=== PATIENT | male | born 1930 | race Two or more races ===

== ENCOUNTER 2017-06-10 09:55 | Inpatient (IN) | payer MEDICARE, OTHER ==
[~2017-06-10] VITALS: Ht 182.9 cm; Wt 79.4 kg
[~2017-06-10 09:55] MED LIST: ARICEPT10 MG ORAL; ASPIR-LOW81 MG ORAL; ATORVASTATIN CA20 MG ORAL; CEPHALEXIN500 MG ORAL; CILOSTAZOL100 MG PO; DEPAKOTE ER250 MG ORAL; ISOSORBIDE MONO20 MG PO; METOPROLOL SUCC25 MG ORAL; MIRTAZAPINE15 M3 ORAL; MULTIVITAMINS1 EAC2 ORAL; NAMENDA5 MG ORAL; OMEPRAZOLE20 M2 ORAL; POTASSIUM99 M3 PO; TAMSULOSIN HCL0.4 MG ORAL
[2017-06-10 10:06] VITALS: BP 117/65
[2017-06-10] MEDS ORDERED: POTASSIUM CHLO10 ME2 PO (10:12)
[2017-06-10] MEDS ORDERED: ISOSORBIDE MONO30 M1 PO (10:12)
[2017-06-10] MEDS ORDERED: NEXIUM20 MG ORAL (10:21)
[2017-06-10] MEDS ORDERED: OYSTER SHELL C1 EA15 PO (10:21)
--- NOTE | 2017-06-10 10:54 | Diagnostic Imaging Report ---
Indication: Shortness of breath Technique: One view of the chest Comparison: 02/29/2016 Findings: The lungs and pleural spaces are clear. Heart size is normal. Aorta tortuous calcified and ectatic. Impression: No acute process
--- NOTE | 2017-06-10 10:54 | Emergency Room Report ---
History of Present Illness General Chief Complaint: Generalized Weakness Source: Medical Record, EMS Present Illness HPI 87-year-old male presents ED for evaluation. EMS states that patient has been more weak than usual and appears more confused than usual although patient does have a history of dementia. Patient is normally walking but is now bedbound. Patient is afebrile. In her any additional history at this time. No signs of distress. No other aggravating relieving factors. No other associated symptoms Allergies: Coded Allergies: No Known Allergies (Unverified , 02/29/16) Patient History Past Medical History: dementia Past Surgical History: none Pertinent Family History: none Social History: Denies: smoking, alcohol use, drug use Immunizations: UTD Reviewed Nursing Documentation: PMH: Agreed, PSxH: Agreed Nursing Documentation-PMH Hx Cardiac Problems: Yes - peripheral angiopathy, hypercholesterolemia Hx Cancer: No - RA Hx Gastrointestinal Problems: No Hx Neurological Problems: Yes - DEMENTIA Hx Alzheimer's Disease: Yes Review of Systems All Other Systems: negative except mentioned in HPI Physical Exam Vital Signs Date Time Temp Pulse Resp B/P (MAP) Pulse Ox O2 Delivery O2 Flow Rate FiO2 06/10/17 09:39 72 16 102/66 100 Room Air 06/10/17 10:06 97.5 Sp02 EP Interpretation: reviewed, normal General Appearance: no apparent distress, GCS 15, non-toxic, lethargic Head: normocephalic Eyes: bilateral eye normal inspection, bilateral eye PERRL ENT: normal ENT inspection Neck: normal inspection Respiratory: chest non-tender, lungs clear, normal breath sounds, speaking full sentences Cardiovascular #1: regular rate, rhythm, no edema Gastrointestinal: normal bowel sounds, non tender, soft, non-distended, no guarding, no rebound Rectal: deferred Genitourinary: no CVA tenderness Musculoskeletal: back normal, normal range of motion, non-tender Neurologic: other - dementia Psychiatric: other - dementia Skin: normal inspection Lymphatic: normal inspection Medical Decision Making Diagnostic Impression: Primary Impression: Episode of generalized weakness Additional Impressions: UTI (urinary tract infection) Qualified Codes: N39.0 - Urinary tract infection, site not specified Sepsis Qualified Codes: A41.9 - Sepsis, unspecified organism ER Course Hospital Course 87-year-old male presenting to ED with generalized weakness, more confused than usual Differential diagnoses include: Pneumonia, UTI, sepsis, dehydration, RI/ unstable angina, CVA/TIA Clinical course Patient placed on stretcher. On school lunch monitor with stable vitals are ED course. After initial history and physical, I ordered labs, IV fluids, EKG, chest x-ray, blood cultures, UA. Labs - noted leukocytosis, hb/hct stable, electrolytes ok, lactate > 3, UA + bacteria EKG - NSR, no acute sichemic changes, some PVCS noted interpreted by me CXR - no acute process CT Head - no acute bleed Abx given. given 30cc/kg fluid bolus. Case discussed with Dr Kenny and they agreed to admit patient to their service for further care and support I feel this is a highly complex case requiring extensive working including EKG/ Rhythm strip, Xray/CT/US, Blood/urine lab work, repeat exams while in ED, and administration of strong opiates/narcotics for pain control, admission to hospital or close patient follow up. Diagnosis - sepsis, UTI, generalized weakness Patient admitted to floor in serious condition Labs Test 06/10/17 10:22 White Blood Count 13.3 K/UL (4.8-10.8) Red Blood Count 5.13 M/UL (4.70-6.10) Hemoglobin 15.3 G/DL (14.2-18.0) Hematocrit 46.7 % (42.0-52.0) Mean Corpuscular Volume 91 FL (80-99) Mean Corpuscular Hemoglobin 29.9 PG (27.0-31.0) Mean Corpuscular Hemoglobin Concent 32.8 G/DL (32.0-36.0) Red Cell Distribution Width 12.5 % (11.6-14.8) Platelet Count 294 K/UL (150-450) Mean Platelet Volume 8.3 FL (6.5-10.1) Neutrophils (%) (Auto) 77.9 % (45.0-75.0) Lymphocytes (%) (Auto) 16.2 % (20.0-45.0) Monocytes (%) (Auto) 4.3 % (1.0-10.0) Eosinophils (%) (Auto) 0.5 % (0.0-3.0) Basophils (%) (Auto) 1.1 % (0.0-2.0) Urine Color Yellow Urine Appearance Slightly cloudy Urine pH 7 (4.5-8.0) Urine Specific [place] 1.010 (1.005-1.035) Urine Protein 2+ (NEGATIVE) Urine Glucose (UA) Negative (NEGATIVE) Urine Ketones Negative (NEGATIVE) Urine Occult Blood 2+ (NEGATIVE) Urine Nitrite Positive (NEGATIVE) Urine Bilirubin Negative (NEGATIVE) Urine Urobilinogen 4 MG/DL (0.0-1.0) Urine Leukocyte Esterase 3+ (NEGATIVE) Urine RBC 2-4 /HPF (0 - 0) Urine WBC 10-15 /HPF (0 - 0) Urine Squamous Epithelial Cells Occasional /LPF Urine Bacteria Moderate /HPF (NONE) Urine Mucus Moderate /LPF (NONE/OCC) Sodium Level 142 MMOL/L (136-145) Potassium Level 4.4 MMOL/L (3.5-5.1) Chloride Level 109 MMOL/L (98-107) Carbon Dioxide Level 20 MMOL/L (21-32) Anion Gap 13 mmol/L (5-15) Blood Urea Nitrogen 21 mg/dL (7-18) Creatinine 1.2 MG/DL (0.55-1.30) Estimat Glomerular Filtration Rate mL/min (>60) Glucose Level 173 MG/DL (74-106) Lactic Acid Level 3.20 mmol/L (0.66-2.22) Calcium Level 9.8 MG/DL (8.5-10.1) Total Bilirubin 0.5 MG/DL (0.2-1.0) Aspartate Amino Transf (AST/SGOT) 21 U/L (15-37) Alanine Aminotransferase (ALT/SGPT) 13 U/L (12-78) Alkaline Phosphatase 109 U/L (46-116) Total Creatine Kinase 347 U/L (26-308) Creatine Kinase MB 3.3 NG/ML (0.0-3.6) Creatine Kinase MB Relative Index 0.9 Troponin I 0.008 ng/mL (0.000-0.056) Pro-B-Type Natriuretic Peptide 918 pg/mL (0-125) Total Protein 7.5 G/DL (6.4-8.2) Albumin 3.0 G/DL (3.4-5.0) Globulin 4.5 g/dL Albumin/Globulin Ratio 0.7 (1.0-2.7) EKG Diagnostic Results Rate: normal Rhythm: NSR ST Segments: no acute changes ASA given to the pt in ED: No Rhythm Strip Diag. Results EP Interpretation: yes Rhythm: NSR, no ectopy, other - PVCs Chest X-Ray Diagnostic Results Chest X-Ray Diagnostic Results : Chest X-Ray Ordered: Yes # of Views/Limited/Complete: 1 View Indication: Other - ams EP Interpretation: Yes Interpretation: no consolidation, no effusion, no pneumothorax, no acute cardiopulmonary disease Impression: No acute disease Electronically Signed by: Electronically signed by Justin Elizondo MD CT/MRI/US Diagnostic Results CT/MRI/US Diagnostic Results : Imaging Test Ordered: CT Head Impression no acute process identified Last Vital Signs Date Time Temp Pulse Resp B/P (MAP) Pulse Ox O2 Delivery O2 Flow Rate FiO2 06/10/17 10:06 97.5 94 16 117/65 100 Room Air Status: improved Disposition: ADMITTED INPATIENT Condition: Serious JUSTIN ELIZONDO M.D. Jun 10, 2017 10:54
[2017-06-10 11:09] LABS: APPEARANCE,URINE SLIGHTLY CLOUDY; KETONES,URINE NEGATIVE (NEGATIVE); LEUKOCYTE ESTERASE ,URINE 3+ (NEGATIVE); NITRITE,URINE POSITIVE (NEGATIVE); PH,URINE 7 (4.5-8.0); PROTEIN,URINE 2+ (NEGATIVE); UROBILINOGEN,URINE 4 MG/DL (0.0-1.0)
[2017-06-10 11:10] LABS: BASOPHILS % (AUTO) 1.1 % (0.0-2.0); EOSINOPHILS % (AUTO) 0.5 % (0.0-3.0); LYMPHOCYTES % (AUTO) 16.2 % (20.0-45.0); MEAN CORPUSCULAR HEMOGLOBIN 29.9 PG (27.0-31.0); MEAN CORPUSCULAR HGB CONC 32.8 G/DL (32.0-36.0); MEAN CORPUSCULAR VOLUME 91 FL (80-99); MEAN PLATELET VOLUME 8.3 FL (6.5-10.1); MONOCYTES % (AUTO) 4.3 % (1.0-10.0); NEUTROPHILS % (AUTO) 77.9 % (45.0-75.0); PLATELET COUNT 294 K/UL (150-450); RED BLOOD COUNT 5.13 M/UL (4.70-6.10); RED CELL DISTRIBUTION WIDTH 12.5 % (11.6-14.8); WHITE BLOOD COUNT 13.3 K/UL (4.8-10.8)
[2017-06-10 11:34] LABS: REFLEX LACTIC ACID YES OR NO YES
[2017-06-10 11:37] LABS: ALANINE AMINOTRANSFERASE 13 U/L (12-78); ALBUMIN/GLOBULIN RATIO 0.7 (1.0-2.7); ANION GAP 13 mmol/L (5-15); ASPARTATE AMINO TRANSFERASE 21 U/L (15-37); CALCIUM 9.8 MG/DL (8.5-10.1); CARBON DIOXIDE 20 MMOL/L (21-32); CHLORIDE 109 MMOL/L (98-107); CKMB 3.3 NG/ML (0.0-3.6); CREATININE 1.2 MG/DL (0.55-1.30); POTASSIUM 4.4 MMOL/L (3.5-5.1); SODIUM 142 MMOL/L (136-145); TOTAL PROTEIN 7.5 G/DL (6.4-8.2)
[2017-06-10 11:39] LABS: BACTERIA,URINE MODERATE /HPF; SQUAMOUS EPITHELIAL CELL,UR OCCASIONAL /LPF (NONE/OCC)
[2017-06-10 11:40] LABS: MUCUS,URINE MODERATE /LPF (NONE/OCC)
[2017-06-10] MEDS ORDERED: Cefepime HCl 1 GM in D5W 55 ML IVPB ONE (11:45)
--- NOTE | 2017-06-10 11:51 | Diagnostic Imaging Report ---
Indications: Altered mental status Technique: Spiral acquisitions obtained through the brain. Angled axial and coronal 5 x 5 mm slices were reconstructed. Total dose length product 1350 mGycm. CTDI vol(s) 70 mGy. Dose reduction achieved using automated exposure control Comparison: None Findings: A large dense calcification is seen in the left basal ganglia, measures 8 mm diameter. 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 There is age-related enlargement of ventricles and extra-axial CSF spaces. There is periventricular deep white matter chronic ischemic change. 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 No acute intracranial hemorrhage or edema. No mass effect nor midline shift. The calvarium is intact. The mastoids are clear. The sinuses are clear. The orbits are unremarkable. Impression: Negative for acute intracranial bleed or mass effect Chronic and age-related changes, as described Large calcification in the left basal ganglia, nonspecific but most likely postinflammatory The CT scanner at [facility] is accredited by the [employer] and the scans are performed using protocols designed to limit radiation exposure to as low as reasonably achievable to attain images of sufficient resolution adequate for diagnostic evaluation.
[2017-06-10 11:59] VITALS: BP 113/80
[2017-06-10 12:29] VITALS: BP 112/71
[2017-06-10] MEDS ORDERED: Cefepime 1gm vial ONE (12:32)
[2017-06-10] MEDS ORDERED: Milk of Magnesia 30ml Ud ORAL PRN (14:30)
[2017-06-10 16:00] VITALS: BP 142/72
[2017-06-10] MEDS: Calcium Carbonate 500mg w/Vit D 200iu tab ORAL SCH (18:36)
[2017-06-10] MEDS: Memantine 5 MG TAB ORAL SCH (18:36)
[2017-06-10] MEDS: Tamsulosin 0.4mg cap ORAL SCH (18:36)
[2017-06-10 20:45] VITALS: BP 129/87
[2017-06-10] MEDS: Depakote ER 250mg tab ORAL SCH (20:46)
[2017-06-10] MEDS: Heparin 5000 units/ml inj SUBQ SCH (20:46)
[2017-06-10] MEDS: Atorvastatin 20mg tab ORAL SCH (20:47)
[2017-06-10] MEDS: Docusate 100mg cap ORAL SCH (20:47)
--- NOTE | 2017-06-10 21:00 | History and Physical Report ---
DATE OF ADMISSION: 06/10/2017 CHIEF COMPLAINT/REASON FOR HOSPITALIZATION: The patient is admitted for weakness, change in mental status, pyuria, and presumed UTI. HISTORY OF PRESENT ILLNESS: The patient is an 87-year-old man, resident of assisted living facility. Today, the staff noticed that he was having generalized weakness, not getting out of bed, and not acting in his usual manner. There were some concerns that he may be weaker on the left side than the right. In view of the above, he was sent to the emergency room. Laboratories are consistent with leukocytosis and pyuria and the CT brain scan has showed some presumed chronic changes, but negative for acute intracranial bleed or mass effect. There are old lacunar infarcts in the left basal ganglion. There is a large calcification in the left basal ganglia, nonspecific, but most likely post inflammatory. The patient has had no head trauma. He usually sits up in a wheelchair and generally eats fairly well and takes his medication. 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 There is a history of coronary artery disease and peripheral vascular disease, predating my taking over his care. He also has a history of BPH. PAST MEDICAL HISTORY: The patient is unable. MEDICATIONS: Tamsulosin 0.4 mg daily, Aricept 10 mg daily, Namenda 5 mg b.i.d., Os-Jean plus D b.i.d., aspirin 81 mg daily, atorvastatin 20 mg daily, mirtazapine 15 mg daily, Nexium 20 mg daily, Depakote EC 250 mg at bedtime, Pletal one tablet daily 100 mg, potassium 10 mEq two tablets b.i.d., isosorbide 30 mg daily, and metoprolol-XL 25 mg daily. ALLERGIES: None known. REVIEW OF SYSTEMS: The patient is unable. SOCIAL HISTORY: He lives in assisted living facility and I have spoken to his family, who feel that he should have a Full Code. Family phone number, and also [phone]. PHYSICAL EXAMINATION: GENERAL: The patient is lying in bed, in no acute distress. He is alert, trying to pull up the covers, and does not really want to be bothered by staff or physician. VITAL SIGNS: Temperature 97.5 degrees, pulse 81, respirations 16, blood pressure 112/71, and O2 saturation 99% on room air. HEENT: Sclerae are nonicteric. Ocular motions intact in all directions. Oral mucosa moist. NECK: No adenopathy. LUNGS: Clear. HEART: Regular rhythm. I hear no murmur. ABDOMEN: Soft without organomegaly or masses. GENITOURINARY: Penis and testes are normal. RECTAL: Declined by the patient. EXTREMITIES: No edema, cyanosis, or clubbing. NEUROLOGIC: The patient is alert and responsive. He is fidgeting and pulling up the covers. He is moving all extremities. He has apparent equal strength. Ocular motion is intact in all directions. Smile symmetric. Tongue is midline. He moves all extremities. PERTINENT LABORATORY DATA: Pertinent labs show white count of 13.3 and hemoglobin of 15.3. Electrolytes, sodium 142, potassium 4.4, chloride 109, CO2 20, BUN 21, and creatinine 1.2. Glucose 173. Lactic acid 3.2. BNP 918. Troponin 0.08. Urinalysis shows 10 to 15 white cells per high-power field with 3+ leukocyte esterase and positive nitrites and 2+ protein. IMPRESSION: 1. Pyuria, likely urinary tract infection. 2. Altered mental status, likely due to urinary tract infection and underlying Alzheimer's with agitation. 3. Benign prostatic hypertrophy. 4. History of coronary disease. 5. Gait disorder. 6. Osteoarthritis of the knees. PLAN: The patient will be hydrated and given broad-spectrum antibiotics for urinary tract infection pending cultures. We will watch his neurologic status closely. Likely, the altered mental status is a combination of Alzheimer's multi-infarct dementia and the effect of a urinary tract infection. Nicanor Kenny M.D. DR: JULIA JOB#: [id number] CC:
[2017-06-11] VITALS: BP 147/76
[2017-06-11 04:00] VITALS: BP 140/92
[2017-06-11] MEDS: Calcium Carbonate 500mg w/Vit D 200iu tab ORAL SCH ×2 (05:56→17:33)
[2017-06-11 06:52] LABS: BASOPHILS % (AUTO) 1.2 % (0.0-2.0); EOSINOPHILS % (AUTO) 5.4 % (0.0-3.0); LYMPHOCYTES % (AUTO) 32.5 % (20.0-45.0); MEAN CORPUSCULAR HEMOGLOBIN 30.5 PG (27.0-31.0); MEAN CORPUSCULAR HGB CONC 33.9 G/DL (32.0-36.0); MEAN CORPUSCULAR VOLUME 90 FL (80-99); PLATELET COUNT 233 K/UL (150-450); RED CELL DISTRIBUTION WIDTH 12.7 % (11.6-14.8); WHITE BLOOD COUNT 9.7 K/UL (4.8-10.8)
[2017-06-11 07:21] LABS: ALANINE AMINOTRANSFERASE 11 U/L (12-78); ALBUMIN/GLOBULIN RATIO 0.5 (1.0-2.7); ANION GAP 10 mmol/L (5-15); ASPARTATE AMINO TRANSFERASE 17 U/L (15-37); CALCIUM 8.5 MG/DL (8.5-10.1); CARBON DIOXIDE 23 MMOL/L (21-32); CHLORIDE 109 MMOL/L (98-107); POTASSIUM 3.7 MMOL/L (3.5-5.1); SODIUM 142 MMOL/L (136-145); THYROID STIMULATING HORMONE 2.366 uiU/mL (0.360-3.740); TOTAL PROTEIN 6.1 G/DL (6.4-8.2)
[2017-06-11 08:00] VITALS: BP 136/88
[2017-06-11] MEDS: Aspirin EC 81mg tab ORAL SCH (09:03)
[2017-06-11] MEDS: Docusate 100mg cap ORAL SCH ×2 (09:03→22:17)
[2017-06-11] MEDS: Tamsulosin 0.4mg cap ORAL SCH ×2 (09:03→17:33)
[2017-06-11] MEDS: Memantine 5 MG TAB ORAL SCH ×2 (09:04→17:33)
[2017-06-11] MEDS: Metoprolol Succinate XL 25mg tab ORAL SCH (09:04)
[2017-06-11] MEDS: Depakote ER 250mg tab ORAL SCH ×2 (09:04→22:17)
[2017-06-11] MEDS: Imdur 30mg tab ORAL SCH (09:05)
[2017-06-11] MEDS: Donepezil 10mg tab ORAL SCH (09:05)
[2017-06-11] MEDS: Heparin 5000 units/ml inj SUBQ SCH ×2 (09:05→22:19)
[2017-06-11 12:00] VITALS: BP 93/71
--- NOTE | 2017-06-11 15:12 | General Progress Note ---
Assessment/Plan Problem List: (1) Pyelonephritis ICD Codes: N12 - Tubulo-interstitial nephritis, not specified as acute or chronic SNOMED: 15768249 (2) Dehydration ICD Codes: E86.0 - Dehydration SNOMED: 72542349 (3) Failure to thrive (4) History of ASCVD (arteriosclerotic cardiovascular disease) ICD Codes: Z86.79 - Personal history of other diseases of the circulatory system SNOMED: 388004446 (5) BPH (benign prostatic hyperplasia) ICD Codes: N40.0 - Enlarged prostate without lower urinary tract symptoms SNOMED: 350384158, 639304032 (6) Incontinence of urine ICD Codes: R32 - Unspecified urinary incontinence SNOMED: 752318036 (7) Gait abnormality ICD Codes: R26.9 - Unspecified abnormalities of gait and mobility SNOMED: 61544059 (8) Episode of generalized weakness ICD Codes: R53.1 - Weakness SNOMED: 41300289 Assessment/Plan continue empiric antibiotic pending culture, hydration Subjective ROS Limited/Unobtainable: Yes Allergies: Coded Allergies: No Known Allergies (Unverified , 02/29/16) Objective Last 24 Hour Vital Signs Date Time Temp Pulse Resp B/P (MAP) Pulse Ox O2 Delivery O2 Flow Rate FiO2 06/11/17 12:00 98.2 90 20 93/71 94 Room Air 06/11/17 09:05 136/88 06/11/17 09:04 82 136/88 06/11/17 08:00 98.2 82 20 136/88 95 Room Air 06/11/17 04:00 97.7 81 20 140/92 95 Room Air 06/11/17 00:00 98.1 72 20 147/76 96 Room Air 06/10/17 20:45 98.8 86 20 129/87 95 Room Air 06/10/17 16:00 98.2 67 20 142/72 98 Room Air Intake and Output 06/11/17 06/12/17 19:00 07:00 Intake Total 500 ml Balance 500 ml IV Total 500 ml Laboratory Tests 06/11/17 05:50: White Blood Count 9.7, Red Blood Count 4.20L, Hemoglobin 12.8L, Hematocrit 37.9L , Mean Corpuscular Volume 90, Mean Corpuscular Hemoglobin 30.5, Mean Corpuscular Hemoglobin Concent 33.9, Red Cell Distribution Width 12.7, Platelet Count 233, Mean Platelet Volume 8.0, Neutrophils (%) (Auto) 56.0, Lymphocytes (% ) (Auto) 32.5, Monocytes (%) (Auto) 5.0, Eosinophils (%) (Auto) 5.4H, Basophils (%) (Auto) 1.2, Sodium Level 142, Potassium Level 3.7, Chloride Level 109H, Carbon Dioxide Level 23, Anion Gap 10, Blood Urea Nitrogen 13, Creatinine 1.0, Estimat Glomerular Filtration Rate , Glucose Level 81, Lactic Acid Level 1.30, Calcium Level 8.5, Total Bilirubin 0.4, Aspartate Amino Transf (AST/SGOT) 17, Alanine Aminotransferase (ALT/SGPT) 11L, Alkaline Phosphatase 79, Troponin I 0.017, Total Protein 6.1L, Albumin 2.1L, Globulin 4.0, Albumin/Globulin Ratio 0.5L, Thyroid Stimulating Hormone (TSH) 2.366 Height (Feet): 6 Height (Inches): 0.00 Weight (Pounds): 175 General Appearance: no apparent distress, alert, confused EENT: PERRL/EOMI Neck: normal alignment, supple Cardiovascular: normal peripheral pulses, normal rate, regular rhythm Respiratory/Chest: normal breath sounds Abdomen: non tender Edema: no edema noted Arm (L), no edema noted Arm (R), no edema noted Leg (L), no edema noted Leg (R), no edema noted Pedal (L), no edema noted Pedal (R), no edema noted 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
[2017-06-11 16:00] VITALS: BP 131/83
--- NOTE | 2017-06-11 16:42 | Cardiology Report ---
APPROVED REPORT EKG Measurement Heart [id number] Sinus rhythm with occasional premature ventricular complexes Low voltage QRS Left anterior fascicular block Possible Lateral infarct, age undetermined Prolonged QT Abnormal ECG
[2017-06-11 20:00] VITALS: BP 132/88
[2017-06-11] MEDS: Atorvastatin 20mg tab ORAL SCH (22:17)
[2017-06-12] VITALS: BP 150/64
[2017-06-12 04:00] VITALS: BP 150/91
[2017-06-12] MEDS: Calcium Carbonate 500mg w/Vit D 200iu tab ORAL SCH (06:14)
[2017-06-12 07:56] LABS: BASOPHILS % (AUTO) 1.1 % (0.0-2.0); EOSINOPHILS % (AUTO) 6.1 % (0.0-3.0); LYMPHOCYTES % (AUTO) 31.5 % (20.0-45.0); MEAN CORPUSCULAR HEMOGLOBIN 30.6 PG (27.0-31.0); MEAN CORPUSCULAR HGB CONC 34.2 G/DL (32.0-36.0); MEAN CORPUSCULAR VOLUME 90 FL (80-99); MEAN PLATELET VOLUME 7.1 FL (6.5-10.1); MONOCYTES % (AUTO) 6.2 % (1.0-10.0); NEUTROPHILS % (AUTO) 55.2 % (45.0-75.0); PLATELET COUNT 245 K/UL (150-450); RED BLOOD COUNT 4.73 M/UL (4.70-6.10); RED CELL DISTRIBUTION WIDTH 12.5 % (11.6-14.8); WHITE BLOOD COUNT 10.3 K/UL (4.8-10.8)
[2017-06-12 08:18] LABS: ANION GAP 14 mmol/L (5-15); CARBON DIOXIDE 21 MMOL/L (21-32); CHLORIDE 107 MMOL/L (98-107); CREATININE 0.8 MG/DL (0.55-1.30); POTASSIUM 4.1 MMOL/L (3.5-5.1); SODIUM 142 MMOL/L (136-145)
[2017-06-12 08:43] VITALS: BP 138/94
[2017-06-12] MEDS: Metoprolol Succinate XL 25mg tab ORAL SCH (08:57)
[2017-06-12] MEDS: Docusate 100mg cap ORAL SCH (08:57)
[2017-06-12] MEDS: Tamsulosin 0.4mg cap ORAL SCH (08:57)
[2017-06-12] MEDS: Donepezil 10mg tab ORAL SCH (08:57)
[2017-06-12] MEDS: Aspirin EC 81mg tab ORAL SCH (08:57)
[2017-06-12] MEDS: Depakote ER 250mg tab ORAL SCH (08:57)
[2017-06-12] MEDS: Memantine 5 MG TAB ORAL SCH (08:58)
[2017-06-12] MEDS: Imdur 30mg tab ORAL SCH (08:58)
[2017-06-12] MEDS: Heparin 5000 units/ml inj SUBQ SCH (08:59)
[2017-06-12 12:10] VITALS: BP 119/59
[2017-06-12 16:17] VITALS: BP 143/92
[2017-06-12] MEDS ORDERED: 1/2 NS 1000ml IV ONE (18:21)
--- NOTE | 2017-06-15 08:45 | Discharge Summary ---
DATE OF ADMISSION: 06/10/2017 DATE OF DISCHARGE: 06/12/2017 PERTINENT HISTORY: The patient weakness, altered mental status, and UTI. The patient has a history of coronary artery disease, Alzheimer disease, behavioral disturbance, became increasingly lethargic, eating poorly. PERTINENT PHYSICAL FINDINGS: GENERAL: The patient is alert. Trying to pull up the covers. Not really eager to be examined. HEENT: Unremarkable. LUNGS: Clear. HEART: Regular rhythm. No murmur. ABDOMEN: Soft. No organomegaly. GENITOURINARY: Penis and testes normal. RECTAL: Declined. EXTREMITIES: No edema. NEUROLOGIC: He is alert and responsive without focal weakness. He is confused and disoriented. COURSE IN THE HOSPITAL: The patient was hydrated and started on empiric antibiotics. He had leukocytosis and had initially elevated lactic acid. His urine culture grew Proteus mirabilis. The patient improved with the above regimen, was able to tolerate diet, became alert, although confused. The patient is back to his baseline status and discharged back to his assisted living facility. FINAL DIAGNOSES: 1. Proteus mirabilis urinary tract infection and likely pyelonephritis. 2. Lactic acidosis, mild, secondary to pyelonephritis. 3. Altered mental status, secondary to infection. 4. Dehydration. 5. Alzheimer disease. 6. Coronary artery disease. DISCHARGE DISPOSITION: Back to his assisted living facility with regular diet. MEDICATIONS: Per the discharge medication list. Nicanor Kenny M.D. DR: Kacey JOB#: [id number] CC:
== END 2017-06-12 18:22 | disposition home or self-care (01) | DRG 690 ==
LOC: EDBD 09:55 → EMR 10:52 → 4E 10:55 → EDBEDREQ 11:11
DX: N12 Tubulo-interstitial nephritis, not specified as acute or chronic (principal); E86.0 Dehydration; G30.9 Alzheimer's disease, unspecified; B96.4 Proteus (mirabilis) (morganii) as the cause of diseases classified elsewhere; F02.80 Dementia in other diseases classified elsewhere, unspecified severity, without behavioral disturbance, psychotic disturbance, mood disturbance, and anxiety; I73.9 Peripheral vascular disease, unspecified; R26.9 Unspecified abnormalities of gait and mobility; M17.0 Bilateral primary osteoarthritis of knee; E78.00 Pure hypercholesterolemia, unspecified; I25.10 Atherosclerotic heart disease of native coronary artery without angina pectoris; R62.7 Adult failure to thrive; N40.1 Benign prostatic hyperplasia with lower urinary tract symptoms; N39.498 Other specified urinary incontinence
CPT/HCPCS: 36415; 70450; 71010; 80048; 80053; 81003; 82550; 82553; 83605; 83880; 84443; 84484; 85025; 87040; 87086; 87181; 93005; 99285